=== PATIENT | male | born 1990 | race Caucasian/White ===

== ENCOUNTER 2018-03-04 14:30 | Outpatient (CLI) | payer MEDICAID, SELFPAY ==
[2018-03-04 16:03] LABS: LDH 350 U/L (85-227)
[2018-03-05 10:19] LABS: AFP Tumor Marker 3.9 ng/mL (<8.1)
[2018-03-05 17:23] LABS: Beta-HCG, Quant, Tumor Marker 7.7 IU/L (<1.4)
== END 2018-03-04 14:50 ==
PROVIDERS: PCP Family Medicine; Visit Provider Urology
DX: C62.90 Malignant neoplasm of unspecified testis, unspecified whether descended or undescended (principal)
CPT/HCPCS: 36415; 82105; 83615; 84702

== ENCOUNTER 2018-06-14 09:58 | Outpatient (CLI) | payer MEDICAID, SELFPAY ==
[2018-06-14 10:31] LABS: Abs Immature Grans 1.16 k/cumm (0.0-0.09); HCT 26.7 % (40.0-50.0); Mean Corp. HGB Concentration 33.7 g/dL (32.0-36.0); Mean Corpuscular Hemoglobin 32.1 pg (27.0-33.0); Mean Corpuscular Volume 95.4 fL (80-95); Platelet Count 423 x1000/uL (130-400); RBC Distribution Width 16.1 % (11.8-14.1); White Blood Cell Count 21.98 k/cumm (4.4-10.8)
[2018-06-14 10:49] LABS: Absolute Eosinophil Count 0.22 k/cumm (0.0-0.7); Absolute Neutrophil Count 18.68 k/cumm (1.2-6.7); Basophilic Stippling Present; Diff Comment Manual Differential; Poikilocytes 1+; Polychromasia Present
[2018-06-14 10:55] LABS: ALT 14 U/L (12-78); AST 8 U/L (15-37); Albumin 3.2 g/dL (3.4-5.0); Alkaline Phosphatase 68 U/L (46-116); Anion Gap 7.1 mmol/L (3-11); BUN 23 mg/dL (7-18); Bilirubin, Total 0.3 mg/dL (0.2-1.0); CO2 32.9 mmol/L (21.0-32.0); CREATININE 1.51 mg/dL (0.70-1.30); Calcium 9.7 mg/dL (8.5-10.1); Chloride 95 mmol/L (98-107); Glucose 141 mg/dL (70-100); Potassium 3.9 mmol/L (3.5-5.1); Sodium 135 mmol/L (136-145)
== END 2018-06-14 10:18 ==
PROVIDERS: PCP Family Medicine; Visit Provider Internal Medicine
DX: D64.81 Anemia due to antineoplastic chemotherapy (principal); T45.1X5A Adverse effect of antineoplastic and immunosuppressive drugs, initial encounter; C62.91 Malignant neoplasm of right testis, unspecified whether descended or undescended
CPT/HCPCS: 36415; 80053; 85025